=== PATIENT | female | born 1955 | race Caucasian/White ===

== ENCOUNTER → 2016-11-28 | Day surgery (SDC) | payer BC ==
[2016-11-24 09:00] VITALS: Ht 175.3 cm; Wt 130.0 kg
[~2016-11-28] VITALS: Ht 175.3 cm; Wt 130.0 kg
[~2016-11-28] MED LIST: ALPR-411 PO; ASCA500 PO; CTP/1 PO; FERR1TAB62 PO; FURO-85 PO; GLYB5TAB8 PO; L-ME1CAP3 PO; LEVO200T6 PO; LIDOCAINE HCL 2% 2 ML VIAL (20MG/ML) ONE; METF1TAB53 PO; METOPROLOL TARTRATE 1 MG/ML VIAL ONE; MILK1CAP9 PO; MULT-506 PO; NRN/300 PO; OMEP40CA PO; PROP20TA67 PO; PROPOFOL IV EMULSION 10 MG/ML 20 ML VIAL IV ONE; SODIUM CHLORIDE 0.9% 500ML 500 ML IV ONE; SPIR50TA3 PO; TRIA0.5C9 TOP
--- NOTE | 2016-11-28 08:31 | Endo History and Physical ---
History & Physical Date of Service: Nov 28, 2016. Chief Complaint: non-alcoholic cirrhosis of liver Referring Physician: Dr.Tufail Gooden,Dr. Janice Regalado History of Present Illness 61 yo presenting for evaluation of varices in the setting of known, non- complicated HENRIQUEZ cirrhosis Past Surgical History Hx Cardiac Surgery: No Hx Internal Defibrillator: No Hx Pacemaker: No Hx Abdominal Surgery: Yes (TUBAL LIGATION, D&C, LAP THERESE, LAP BAND) Hx of Implantable Prosthesis: No Hx Post-Op Nausea and Vomiting: Yes Hx Cancer Surgery: No Hx Thoracic Surgery: No Hx Orthopedic: No Hx Urinary Tract Surgery: No Family History None Social History Smoking Status: Former Smoker Hx Substance Use: No Hx Alcohol Use: No Allergies Coded Allergies: No Known Allergies (Verified , 11/28/16) Current Medications Reported Home Medications Medications Dose Route/Sig Max Daily Dose Days Date Category Ferrous Sulfate 325 Mg Tab 1 Tab PO BID 11/24/16 Reported Vitamin C (Ascorbic Acid) 500 Mg Tab 1,000 Mg PO QAM 11/24/16 Reported Aldactone (Spironolactone) 50 Mg Tab 50 Mg PO QAM 11/24/16 Reported Lasix (Furosemide) 20 Mg Tab 20 Mg PO QAM 11/24/16 Reported Multivitamin (Multivitamins) Tab 1 Tab PO BID 03/22/16 Reported Aristocort 0.5% (Triamcinolone Acetonide) Cr 1 Appln TOP DAILY PRN 03/22/16 Reported Catapres (Clonidine Hcl) 0.1 Mg Tab 0.1 Mg PO BID 03/22/16 Reported Glucophage Ext Rel (Metformin Hcl) 1,000 Mg Tab 1,000 Mg PO BID 03/22/16 Reported Micronase (Glyburide) 5 Mg Tab 0.5 Tab PO BID 03/22/16 Reported Neurontin (Gabapentin) 300 Mg Cap 300 Mg PO TID 03/22/16 Reported Metanx (L-Methylfolate W/ Algae-Vitami) 1 Cap Cap 1 Cap PO QAM 03/22/16 Reported Milk Thistle (Milk Thistle (Silybum Marianum) 1,000 Mg Cap 1,300 Mg PO QAM 03/22/16 Reported Xanax (Alprazolam) 0.5 Mg Tab 0.5 Mg PO HS PRN 03/22/16 Reported Inderal (Propranolol HCl) 20 Mg Tab 20 Mg PO BID 03/22/16 Reported Prilosec (Omeprazole) 40 Mg Capcr 40 Mg PO HS 03/22/16 Reported Levothyroxine Sodium 200 Mcg Tab 1 Tab PO QAM 03/22/16 Reported Vital Signs Weight (Kilograms): 130 Height (Feet): 5 Height (Inches): 9 Date Time Temp Pulse Resp B/P Pulse Ox O2 Delivery O2 Flow Rate FiO2 11/28/16 08:20 36.6 77 20 163/76 95 Room Air Physical Exam General Appearance: WD/WN, no apparent distress Respiratory/Chest: Respiratory effort: no dyspnea Auscultation: breath sounds normal, CTA except as noted Cardiovascular: Apical Impulse: not displaced Heart Auscultation: RRR, normal S1, normal S2 Abdomen: Bowel Sounds: normal Inspection & Palpation: soft, non-distended Assessment and Plan 61 yo with henriquez presenting for variceal screening -proceed with egd
--- NOTE | 2016-11-28 08:53 | Discharge Instructions ---
Endoscopy Patient Instructions Date / Procedure(s) Performed Nov 28, 2016. EGD Allergy Information Coded Allergies: No Known Allergies (Verified , 11/28/16) Discharge Date / Findings Nov 28, 2016. Erosions in gastric antrum Varices Medication Instructions Stopped Medication(s): stopped Iron one week ago,Metformin Sunday am Avoid NSAIDs Continue Propranolol Will await biopsy Provider Instructions Activity Restrictions - No exercising or heavy lifting for 24 hours. - Do not drink alcohol the day of the procedure. - Do not drive a car or operate machinery until the day after the procedure. - Do not make any important decisions or sign important papers in 24 hours after the procedure. Following Day: - Return to full activity which may include returning to work/school. Diet Start your diet with liquids and light foods (jello, soup, juice, toast). Then eat your usual diet if not nauseated. Treatment For Common After Affects For mild abdominal pain, bloating, or excessive gas: - Rest - Eat lightly - Lie on right side Follow-Up Information Follow-up with Dr.Tufail Gooden,Dr. Janice Regalado as scheduled Anesthesia Information What You Should Know You have had a procedure that required some medicine to reduce anxiety and discomfort. This treatment is called moderate sedation. After receiving the treatment, you may be sleepy, but you will be able to breathe on your own. The effects of the treatment may last for several hours. Follow these instructions along with Activity/Diet recommendations noted above: * Do NOT do anything where dizziness or clumsiness would be dangerous. * Rest quietly at home today, then you can be up and about tomorrow. * Have a responsible person stay with you the rest of today. * You may have had an I.V. today. If so, you may take the dressing off later today. Recommendations Call your doctor if: * Trouble breathing * Continuous vomiting for more than 24 hours * Temperature above 101 degrees * Severe abdominal pain or bloating * Pain not relieved by pain medicine ordered * There is increased drainage or redness from any incision * A large amount of rectal bleeding greater than 2-3 tablespoons. (If you had a polyp/s removed or have hemorrhoids, a small amount of blood - from the rectum is to be expected.) * You have any unanswered questions or concerns. IN THE EVENT OF A SERIOUS EMERGENCY, GO TO THE NEAREST EMERGENCY ROOM Your discharge instructions were prepared by provider Karel Purvis. Patient Instructions Signature Page Henrietta Grant Patient (or Guardian) Signature/Date: I have read and understand the instructions given to me by my caregivers. Caregiver/RN/Doctor Signature/Date: The above-named patient and/or guardian has received patient instructions on this date. + Original Patient Signature Page (only) stays with chart. Please make copy for patient.
--- NOTE | 2016-11-28 08:57 | GI REPORT ---
Procedure Date: 11/28/2016 8:33 AM Procedure: Upper GI endoscopy Indications: Cirrhosis rule out esophageal varices-No history of esophageal variceal hemorrhaging. Medicines: General Anesthesia Complications: No immediate complications. Estimated blood loss: None. Estimated Blood Loss: Estimated blood loss: none. Procedure: Pre-Anesthesia Assessment: - Pre-Anesthesia Assessment: - Prior to the procedure, a History and Physical was performed, and patient medications, allergies and sensitivities were reviewed. The patient's tolerance of previous anesthesia was reviewed. Please see [facility] for complete details. - The risks and benefits of the procedure and the sedation options and risks were discussed with the patient. All questions were answered and informed consent was obtained. - Patient identification and proposed procedure were verified prior to the procedure by the physician and the nurse. The procedure was verified in the pre-procedure area in the procedure room. After obtaining informed consent, the endoscope was passed carefully and meticuously under direct vision and only advanced when the lumen was clearly identified, C02 insuflation was utilized throughout the entirity of the procedure. Throughout the procedure, the patient's blood pressure, pulse, and oxygen saturations were monitored continuously. After obtaining informed consent, the endoscope was passed under direct vision. Throughout the procedure, the patient's blood pressure, pulse, and oxygen saturations were monitored continuously. The scope was introduced through the mouth, and advanced to the second part of duodenum. The upper GI endoscopy was accomplished without difficulty. The patient tolerated the procedure well. Findings: Large (> 5 mm) varices were found in the lower third of the esophagus. A few localized, non-bleeding erosions were found in the gastric antrum. There were no stigmata of recent bleeding. Biopsies were taken with a cold forceps for histology. The examined duodenum was normal. Impression: - Large (> 5 mm) esophageal varices. - Non-bleeding erosive gastropathy. Biopsied. - Normal examined duodenum. Recommendation: - Await pathology results. - Discharge patient to home (with escort). - No aspirin, ibuprofen, naproxen, or other non-steroidal anti-inflammatory drugs. - Use Prilosec (omeprazole) 40 mg PO daily. Karel Purvis MD 11/28/2016 8:56:41 AM This report has been signed electronically. Note Initiated On: 11/28/2016 8:33 AM I attest to the content of the Intraoperative Record and orders documented therein, exceptions below
[2016-11-28 09:30] VITALS: BP 129/54; PULSE 68; O2SAT 94
--- NOTE | 2016-11-28 09:57 | Anesthesiology Progress Note ---
Anesthesia Post Op Note Date & Time Nov 28, 2016 at 09:57 Vital Signs Pain Intensity: 0 Vital Signs Past 12 Hours Date Time Temp Pulse Resp B/P Pulse Ox O2 Delivery O2 Flow Rate FiO2 11/28/16 09:30 68 18 129/54 94 Room Air 11/28/16 09:15 68 18 122/53 94 Room Air 11/28/16 09:00 73 18 141/57 93 Room Air 11/28/16 08:20 36.6 77 20 163/76 95 Room Air Notes Mental Status: alert / awake / arousable, participated in evaluation Pt Amnestic to Procedure: Yes Nausea / Vomiting: adequately controlled Pain: adequately controlled Airway Patency, RR, SpO2: stable & adequate BP & HR: stable & adequate Hydration State: stable & adequate Anesthetic Complications: no major complications apparent
== END | disposition home or self-care (01) ==
LOC: C.GI 07:53
PROVIDERS: ATTEND Internal Medicine
DX: K74.60 Unspecified cirrhosis of liver (principal); I85.00 Esophageal varices without bleeding; K29.50 Unspecified chronic gastritis without bleeding; E11.9 Type 2 diabetes mellitus without complications; E66.9 Obesity, unspecified; Z68.41 Body mass index [BMI] 40.0-44.9, adult; G47.33 Obstructive sleep apnea (adult) (pediatric); Z98.51 Tubal ligation status; Z90.49 Acquired absence of other specified parts of digestive tract; Z98.41 Cataract extraction status, right eye; Z98.42 Cataract extraction status, left eye